=== PATIENT | female | born 1985 | race Caucasian/White ===

== ENCOUNTER 2020-02-15 17:18 | Emergency (ER) | payer MEDICAID ==
--- NOTE | 2020-02-15 19:39 | ED Physician Documentation ---
PD HPI HEENT - Stated complaint Stated Complaint: MOUTH PX - Chief complaint Chief Complaint: Heent - History obtained from History obtained from: Patient - History of Present Illness Timing - onset: How many weeks ago (1) Timing - duration: Weeks (1) Timing - details: Gradual onset, Still present Location: Tooth Improves: Medication Associated symptoms: No: Fever, Congestion, Rhinorrhea Similar symptoms before: Diagnosis (carious teeth abscess) Recently seen: Other - Additional information Additional information: 34-year-old female with carious broken teeth has been in to see her dentist last week and was placed on some amoxicillin. At that time she had a left lower molar and a right upper molar that were hurting her. The left lower molar improved and his pain the right has worsened. She has sensitivity to heat and cold and any touch. 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 - Allergies Allergies/Adverse Reactions: Allergies Allergy/AdvReac Type Severity Reaction Status Date / Time No Known Drug Allergies Allergy Verified 02/15/20 17:31 - Social History Does the pt smoke?: Yes Smoking Status: Current every day smoker Does the pt drink ETOH?: No Does the pt have substance abuse?: No - Immunizations Immunizations are current?: Yes - POLST Patient has POLST: No PD ED PE NORMAL - Vitals Vital signs reviewed: Yes (Normal) - General General: Alert and oriented X 3, Well developed/nourished, Other (Appears to be in pain) - HEENT HEENT: Atraumatic, PERRL, EOMI, Other (There are multiple carious teeth and some broken teeth the right upper molar is broken and there does appear to be exposed pulp. The left lower molar is no longer tender. There is marked tenderness to the right upper molar.) - Respiratory Respiratory: No respiratory distress - Derm Derm: Normal color, Warm and dry, No rash - Extremities Extremities: No deformity, No edema - Neuro Neuro: Alert and oriented X 3, placement director 2-12 intact, No motor deficit, No sensory deficit, Normal speech Eye Opening: Spontaneous Motor: Obeys Commands Verbal: Oriented GCS Score: 15 - Psych Psych: Normal mood, Normal affect Results - Vitals Vitals: Vital Signs - 24 hr 02/15/20 17:27 Temperature 36.2 C L Heart Rate 80 Respiratory 18 Rate Blood Pressure 109/55 L O2 Saturation 100 Oxygen O2 Source Room air PD MEDICAL DECISION MAKING - ED course Complexity details: considered differential, d/w patient ED course: 34-year-old female with a broken tooth that is giving her a lot of pain. We were able to place It over the exposed area and this immediately resolved the patient's pain. Departure - Departure Disposition: 01 Home, Self Care Clinical Impression: Pain due to dental caries Condition: Stable Instructions: ED Tooth Pain Follow-Up: Your, dentist [Other] Comments: Today it appears the broken tooth on the right upper has exposed nerve and covering it with the caivit as described will be helpful. Follow up with your dentist.
[2020-02-15 19:52] VITALS: BP 110/58
== END 2020-02-15 19:51 | disposition home or self-care (01) ==
LOC: ED 17:18
DX: K02.63 Dental caries on smooth surface penetrating into pulp (principal); F17.200 Nicotine dependence, unspecified, uncomplicated
CPT/HCPCS: 99281; 99282

== ENCOUNTER 2022-03-31 20:31 | Emergency (ER) | payer MEDICAID ==
[2022-03-31 20:42] VITALS: BP 135/72
[2022-03-31] MEDS ORDERED: ARIPiprazole 5 MG TABLET PO STA (21:49)
--- NOTE | 2022-03-31 21:55 | ED Physician Documentation ---
History of Present Illness - Stated complaint Stated Complaint: MED REFILL - Chief complaint Chief Complaint: General - History obtained from History obtained from: Patient - Additonal information Additional information: 37yF presents requesting medication refill. she normally takes abilify 15mg daily but missed her dose yesterday after running out of meds. Requested an increase in dose. she has appointment with her psychiatrist in may. denies si/hi/avh. 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 - Present Medications Home Medications: Ambulatory Orders Medication Instructions Recorded Confirmed ARIPiprazole [Abilify] 15 mg PO DAILY #60 tablet 11/17/21 Sertraline [Zoloft] 100 mg PO DAILY #60 tablet 11/17/21 ARIPiprazole [Abilify] 15 mg PO DAILY #30 tablet 02/19/22 Nitrofurantoin [Macrobid] 1 cap PO BID #10 cap 02/19/22 Phenazopyridine HCl [Pyridium] 200 mg PO TID PRN #6 tablet 02/19/22 Sertraline [Zoloft] 100 mg PO DAILY #30 tablet 02/19/22 ARIPiprazole [Abilify] 20 mg PO QDAC #30 tablet 03/31/22 - Allergies Allergies/Adverse Reactions: Allergies Allergy/AdvReac Type Severity Reaction Status Date / Time No Known Drug Allergies Allergy Verified 03/31/22 20:42 - Social History Does the pt smoke?: Yes Smoking Status: Current every day smoker Does the pt drink ETOH?: No Does the pt have substance abuse?: No - Immunizations Immunizations are current?: Yes - POLST Patient has POLST: No PD ED PE NORMAL - Vitals Vital signs reviewed: Yes - General General: Alert and oriented X 3, No acute distress, Well developed/nourished - HEENT HEENT: Atraumatic, PERRL, EOMI - Neck Neck: Supple, no meningeal sign - Derm Derm: Normal color, Warm and dry - Extremities Extremities: No deformity - Neuro Neuro: No motor deficit, No sensory deficit - Psych Psych: Normal mood, Normal affect Results - Vitals Vitals: Vital Signs - 24 hr 03/31/22 20:41 Temperature 36.0 C L Heart Rate 107 H Respiratory 17 Rate Blood Pressure 135/72 H O2 Saturation 100 Oxygen O2 Source Room air PD Medical Decision Making - ED course ED course: 37yF presents for medication refill. She is requesting higher dose of her medication and states she is unable to see a psychiatrist since they have been fully booked out till may. will give her a refill and slight increase in dose per uptodate guidelines. return precautions given. Departure - Departure Disposition: Home, Self Care Clinical Impression: Medication refill Condition: Good Instructions: Aripiprazole tablets Prescriptions: ARIPiprazole [Abilify] 20 mg PO QDAC #30 tablet Comments: You are seen in the emergency department for medication refill. Please follow- up with your psychiatrist and return to the emergency department if you have any worsening symptoms or concerns. Prescription sent electronically to [facility].
== END 2022-03-31 21:57 | disposition home or self-care (01) ==
LOC: ED 20:31
DX: Z76.0 Encounter for issue of repeat prescription (principal); F17.200 Nicotine dependence, unspecified, uncomplicated
CPT/HCPCS: 99281; 99282; A9270

== ENCOUNTER 2022-06-12 18:23 | Emergency (ER) | payer MEDICAID ==
[2022-06-12 18:55] VITALS: BP 142/83
[2022-06-12] MEDS ORDERED: ARIPiprazole 5 MG TABLET PO STA (19:23)
--- NOTE | 2022-06-12 19:24 | ED Physician Documentation ---
History of Present Illness - Stated complaint Stated Complaint: MED REFIL - Chief complaint Chief Complaint: General - History obtained from History obtained from: Patient (37-year-old woman whose boyfriend accidentally threw out her Abilify thinking it was a different prescription the other day and has been out for a few days. No SI or HI. It is unclear when she will be following up. 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 - Present Medications Home Medications: Ambulatory Orders Medication Instructions Recorded Confirmed ARIPiprazole [Abilify] 15 mg PO DAILY #60 tablet 11/17/21 Sertraline [Zoloft] 100 mg PO DAILY #60 tablet 11/17/21 ARIPiprazole [Abilify] 15 mg PO DAILY #30 tablet 02/19/22 Nitrofurantoin [Macrobid] 1 cap PO BID #10 cap 02/19/22 Phenazopyridine HCl [Pyridium] 200 mg PO TID PRN #6 tablet 02/19/22 Sertraline [Zoloft] 100 mg PO DAILY #30 tablet 02/19/22 ARIPiprazole [Abilify] 20 mg PO QDAC #30 tablet 03/31/22 ARIPiprazole [Abilify] 20 mg PO DAILY #30 tablet 06/12/22 - Allergies Allergies/Adverse Reactions: Allergies Allergy/AdvReac Type Severity Reaction Status Date / Time No Known Drug Allergies Allergy Verified 06/12/22 18:54 - Social History Does the pt smoke?: Yes Smoking Status: Current every day smoker Does the pt drink ETOH?: No Does the pt have substance abuse?: No - Immunizations Immunizations are current?: Yes - POLST Patient has POLST: No PD ED PE NORMAL - Vitals Vital signs reviewed: Yes - General General: Alert and oriented X 3, No acute distress - Neuro Neuro: Alert and oriented X 3, Normal speech - Psych Psych: Normal mood, Normal affect Results - Vitals Vitals: Vital Signs - 24 hr 06/12/22 18:52 Temperature 36.6 C Heart Rate 100 Respiratory 16 Rate Blood Pressure 142/83 H O2 Saturation 100 Oxygen O2 Source Room air Departure - Departure Disposition: 01 Home, Self Care Clinical Impression: Medication refill Condition: Good Record reviewed to determine appropriate education?: Yes Prescriptions: ARIPiprazole [Abilify] 20 mg PO DAILY #30 tablet Comments: Continue the process of obtaining follow-up for ongoing psychiatric care and refills. Return for new or worsening symptoms.
== END 2022-06-12 19:32 | disposition home or self-care (01) ==
LOC: ED 18:23
DX: Z76.0 Encounter for issue of repeat prescription (principal); F17.200 Nicotine dependence, unspecified, uncomplicated
CPT/HCPCS: 99281; 99282; A9270

== ENCOUNTER 2022-07-07 22:58 | Emergency (ER) | payer MEDICAID ==
[2022-07-07 23:05] VITALS: BP 132/58
== END 2022-07-08 01:57 | disposition left against medical advice (07) ==
LOC: ED 22:58
DX: Z53.21 Procedure and treatment not carried out due to patient leaving prior to being seen by health care provider (principal)

== ENCOUNTER 2022-08-13 16:27 | Emergency (ER) | payer MEDICAID ==
--- NOTE | 2022-08-13 16:54 | ED Physician Documentation ---
History of Present Illness - Stated complaint Stated Complaint: BILAT LEG PX - Chief complaint Chief Complaint: Wound - Additonal information Additional information: 37-year-old female presents emergency department for evaluation of bilateral lower extremity redness and induration though right greater than left. She states that she cut her leg while shaving a few days ago and has a large abrasion on the anterior kapoor. Over the last several days she has developed an area of mild erythema and induration. She also has a similar area on her left lower leg. The patient does endorse smoking methamphetamine just prior to arrival. She a lso states that sometimes her boyfriend tries to inject her with the medication. Patient requesting a prescription refill for Abilify. She denies any fevers, no red streaking. 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 - Present Medications Home Medications: Ambulatory Orders Medication Instructions Recorded Confirmed ARIPiprazole [Abilify] 20 mg PO DAILY #30 tablet 06/12/22 08/13/22 ARIPiprazole [Abilify] 20 mg PO DAILY #14 tablet 08/13/22 cephALEXin [Keflex] 500 mg PO Q6H #28 cap 08/13/22 - Allergies Allergies/Adverse Reactions: Allergies Allergy/AdvReac Type Severity Reaction Status Date / Time No Known Drug Allergies Allergy Verified 08/13/22 16:34 - Social History Does the pt smoke?: Yes Smoking Status: Current every day smoker Does the pt drink ETOH?: No Does the pt have substance abuse?: No Substance Use and Type: Meth - Immunizations Immunizations are current?: Yes - POLST Patient has POLST: No PD ED PE NORMAL - General General: Alert and oriented X 3, No acute distress, Well developed/nourished - HEENT HEENT: Atraumatic, Moist mucous membranes - Cardiac Cardiac: RRR, No murmur (No cardiac murmur noted) - Respiratory Respiratory: No respiratory distress, Clear bilaterally - Abdomen Abdomen: Normal bowel sounds, Soft, Non tender, Non distended - Derm Derm: Normal color, Warm and dry, No rash - Extremities Extremities: Other (Area of irregular erythema with mild induration at the anterior lower right leg just below large scratch/abrasion. No drainage. Tender to touch. No posterior calf tenderness bilaterally) - Neuro Neuro: Alert and oriented X 3 Results - Vitals Vitals: Vital Signs - 24 hr 08/13/22 16:31 Temperature 36.8 C Heart Rate 108 H Respiratory 16 Rate Blood Pressure 147/86 H O2 Saturation 100 Oxygen O2 Source Room air PD Medical Decision Making - ED course Complexity details: d/w patient ED course: 37-year-old female presents emergency department for concerns of infection in both her lower extremities. The right leg does have an area of cellulitis just below an area where she had scratched or cut her leg while shaving. Patient does endorse illicit drug use which I suspect to be methamphetamine. Reports she use just prior to coming into the emergency department. She does appear to be actively "tweaking." She is hyperverbal and has agitated motor movements. As such I am going to dispense her with a Narcan nasal spray for her safety. She did request a refill of the Abilify which have given her 2-week prescription for I encouraged her to follow closely with PCP. I also gave her the number and name of [facility] should she find herself willing to enter into detox Departure - Departure Disposition: 01 Home, Self Care Clinical Impression: Cellulitis of right leg, Illicit drug use Bipolar disorder Qualifiers: Active/Remission status: currently active Current bipolar episode type: manic Current episode severity: severe Psychotic features: without psychotic features Qualified Code(s): F31.13 - Bipolar disorder, current episode manic without psychotic features, severe Condition: Stable Record reviewed to determine appropriate education?: Yes Instructions: Cellulitis Dc, Naloxone nasal spray Prescriptions: ARIPiprazole [Abilify] 20 mg PO DAILY #14 tablet cephALEXin [Keflex] 500 mg PO Q6H #28 cap Comments: Lizette you do have a bacterial skin infection on your right leg that is consistent with a condition called cellulitis. This may have come from the cut or scratch on it. Please fill the prescription for the Keflex and begin taking 4 times daily for the next week. I have given you a 2-week refill of your Abilify. Please follow with your primary doctor and psychiatrist to get this refilled in the future. I do encourage you to attempt to stop using drugs if you are able. Illicit drug use whether smoking or injecting can lead to bacterial skin infections. If you feel like you would like to detox from methamphetamine you can contact the [facility] center in [place] and they can help talk you through detox and rehab when you are ready [facility] detox and stabilization facility [address] [place] [address] We are dispensing you a Narcan nasal injection kit. This is a rescue medication for anybody who may ingest a drug such as a fentanyl whether intentionally or inadvertently that can cause him to stop breathing. Please keep this with you at all times while using drugs
[2022-08-13] MEDS ORDERED: NALOXONE HCL NASAL SPRAY KIT NAS STA (16:56)
[2022-08-13 16:59] VITALS: BP 147/86
== END 2022-08-13 17:05 | disposition home or self-care (01) ==
LOC: ED 16:27
DX: L03.115 Cellulitis of right lower limb (principal); F31.13 Bipolar disorder, current episode manic without psychotic features, severe; F17.200 Nicotine dependence, unspecified, uncomplicated
CPT/HCPCS: 99282; 99284; G2215

== ENCOUNTER 2022-09-10 19:13 | Emergency (ER) | payer MEDICAID ==
[2022-09-10 19:22] VITALS: BP 132/76
--- NOTE | 2022-09-10 19:45 | ED Physician Documentation ---
History of Present Illness - Stated complaint Stated Complaint: MED REFILL - Chief complaint Chief Complaint: General - History obtained from History obtained from: Patient - Additonal information Additional information: 37-year-old woman presents with request for refill of Abilify. She has had frequent visits to the emergency department requesting refills of Abilify. The reason for this is that she does not have reliable transportation to get to and from her home to the psychiatrist office which I note is actually closer to her home than this hospital is but she can borrow a car in the evening. She has no acute complaints. No SI or HI. 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 - Present Medications Home Medications: Ambulatory Orders Medication Instructions Recorded Confirmed ARIPiprazole [Abilify] 20 mg PO DAILY #30 tablet 06/12/22 08/13/22 ARIPiprazole [Abilify] 20 mg PO DAILY #14 tablet 08/13/22 cephALEXin [Keflex] 500 mg PO Q6H #28 cap 08/13/22 ARIPiprazole [Abilify] 20 mg PO DAILY #30 tablet 09/10/22 - Allergies Allergies/Adverse Reactions: Allergies Allergy/AdvReac Type Severity Reaction Status Date / Time No Known Drug Allergies Allergy Verified 08/13/22 16:34 - Social History Does the pt smoke?: Yes Smoking Status: Current every day smoker Does the pt drink ETOH?: No Does the pt have substance abuse?: No - Immunizations Immunizations are current?: Yes - POLST Patient has POLST: No PD ED PE NORMAL - Vitals Vital signs reviewed: Yes - General General: Alert and oriented X 3, No acute distress - Neuro Neuro: Alert and oriented X 3, Normal speech - Psych Psych: Normal mood, Normal affect Results - Vitals Vitals: Vital Signs - 24 hr 09/10/22 19:20 Temperature 36.1 C L Heart Rate 89 Respiratory 18 Rate Blood Pressure 132/76 H O2 Saturation 100 Oxygen O2 Source Room air Departure - Departure Disposition: 01 Home, Self Care Clinical Impression: Bipolar disorder Qualifiers: Active/Remission status: currently active Current episode severity: unspecified Condition: Good Record reviewed to determine appropriate education?: Yes Prescriptions: ARIPiprazole [Abilify] 20 mg PO DAILY #30 tablet Comments: Please do your best to try to get to your psychiatric provider, it is not appropriate for you to continue to use the emergency department for your refills especially noting that this is your sixth visit for med refill in the last year.
== END 2022-09-10 19:48 | disposition home or self-care (01) ==
LOC: ED 19:13
DX: Z76.0 Encounter for issue of repeat prescription (principal); F31.9 Bipolar disorder, unspecified; F17.200 Nicotine dependence, unspecified, uncomplicated
CPT/HCPCS: 99281; 99283

== ENCOUNTER 2022-12-15 19:05 | Emergency (ER) | payer MEDICAID ==
[2022-12-15 19:28] VITALS: BP 123/64; O2SAT 97
[2022-12-15] MEDS ORDERED: ONDANSETRON ODT 4 MG TABLET TL STA (20:27)
--- NOTE | 2022-12-15 20:31 | ED Physician Documentation ---
History of Present Illness - Stated complaint Stated Complaint: NAUSEA/VOMIT - Chief complaint Chief Complaint: Abd Pain - Additonal information Additional information: 37-year-old female presents 37-year-old female presents emergency department for evaluation of several days nausea and vomiting. She also reports that for the last week she has been sweating a lot. She denies that she is having any abdominal pain with nausea and vomiting. No urinary symptoms. She does endorse methamphetamine use recently. Though she is endorsing nausea and vomiting for 4 days she does have a large bottle of Pepsi as well as Mountain Dew at the bedside that she is consuming without any difficulty. Patient is scheduled to see [facility] on 28 December. Currently Out of her Abilify and is requesting a refill until she is able to see [facility]. Review of Systems Constitutional: denies: Fever, Chills Throat: reports: Reviewed and negative Cardiac: reports: Reviewed and negative Respiratory: reports: Reviewed and negative GI: reports: Nausea, Vomiting. 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 - Present Medications Home Medications: Ambulatory Orders Medication Instructions Recorded Confirmed ARIPiprazole [Abilify] 20 mg PO DAILY #30 tablet 12/15/22 Ondansetron Odt [Zofran] 4 mg TL Q6H PRN #10 tablet 12/15/22 - Allergies Allergies/Adverse Reactions: Allergies Allergy/AdvReac Type Severity Reaction Status Date / Time No Known Drug Allergies Allergy Verified 12/15/22 19:20 - Social History Does the pt smoke?: Yes Smoking Status: Current every day smoker Does the pt drink ETOH?: Yes ETOH Use: Liquor Does the pt have substance abuse?: Yes Substance Use and Type: Meth - Immunizations Immunizations are current?: Yes - POLST Patient has POLST: No PD ED PE NORMAL - General General: Alert and oriented X 3, No acute distress. No: Well developed/nourished (Exaggerated hyperactive motor movements. Hyperverbal.) - HEENT HEENT: PERRL - Cardiac Cardiac: RRR - Respiratory Respiratory: No respiratory distress, Clear bilaterally - Abdomen Abdomen: Normal bowel sounds, Soft, Non tender - Back Back: No CVA TTP - Derm Derm: Normal color, Warm and dry, No rash - Extremities Extremities: No deformity - Neuro Neuro: Alert and oriented X 3, quality assurance 2-12 intact Eye Opening: Spontaneous Motor: Obeys Commands Verbal: Oriented GCS Score: 15 Results - Vitals Vitals: Vital Signs - 24 hr 12/15/22 19:14 Temperature 36.5 C Heart Rate 105 H Respiratory 17 Rate Blood Pressure 123/64 O2 Saturation 97 Oxygen O2 Source Room air PD Medical Decision Making - ED course Complexity details: d/w patient ED course: 37-year-old female who endorses current methamphetamine use presents emergency department for evaluation of 1 week diaphoresis as well as 4 days nausea and vomiting. Denies abdominal pain. On presentation to the emergency department she is hyper verbal and has hyperactive motor movements. Initially offered labs However the patient would not remain for laboratory work-up. She was also requesting a refill of her Abilify until she is able to see [facility] on 28 December. Subsequently she eloped from the emergency department before the work-up could be completed. The time of last evaluation she appeared well. Prescription for Abilify was sent to the [facility] in [place]. Departure - Departure Disposition: ED [place] Clinical Impression: Medication refill, Methamphetamine use Nausea and vomiting Qualifiers: Vomiting type: unspecified Qualified Code(s): R11.2 - Nausea with vomiting, unspecified Condition: Stable Record reviewed to determine appropriate education?: Yes Prescriptions: ARIPiprazole [Abilify] 20 mg PO DAILY #30 tablet Ondansetron Odt [Zofran] 4 mg TL Q6H PRN #10 tablet PRN Reason: Nausea / Vomiting Forms: PCP List
[2022-12-15 20:45] LABS: BASOPHILS # (AUTO) 0.1 10^3/uL (0.0-0.1); BASOPHILS % (AUTO) 0.7 %; EOSINOPHILS # (AUTO) 0.3 10^3/uL (0.0-0.7); EOSINOPHILS % (AUTO) 3.2 %; HCT - HEMATOCRIT 36.3 % (37.0-47.0); HGB - HEMOGLOBIN 12.6 g/dL (12.0-16.0); LYMPHOCYTES # (AUTO) 3.2 10^3/uL (1.5-3.5); MEAN CORPUSCULAR HEMOGLOBIN 30.3 pg (27.0-31.0); MEAN CORPUSCULAR HGB CONC 34.7 g/dL (32.0-36.0); MEAN CORPUSCULAR VOLUME 87.3 fL (81.0-99.0); MEAN PLATELET VOLUME 9.7 fL (7.9-10.8); MONOCYTES # (AUTO) 0.8 10^3/uL (0.0-1.0); MONOCYTES % (AUTO) 9.7 %; NEUTROPHILS # (AUTO) 4.1 10^3/uL (1.5-6.6); NEUTROPHILS % (AUTO) 48.3 %; PLT - PLATELET COUNT 289 10^3/uL (130-450); RED BLOOD COUNT 4.16 10^6/uL (4.20-5.40); RED CELL DISTRIBUTION WIDTH 11.9 % (12.0-15.0); WHITE BLOOD COUNT 8.5 x10^3/uL (4.8-10.8)
[2022-12-15 21:11] LABS: HCG,QUALITATIVE BLOOD NEGATIVE
[2022-12-15 21:17] LABS: ALBUMIN 4.5 g/dL (3.2-5.5); ALBUMIN/GLOBULIN RATIO 1.6 (1.0-2.2); CALCIUM 8.9 mg/dL (8.5-10.3); CREATININE 0.8 mg/dL (0.4-1.0); POTASSIUM 3.8 mmol/L (3.5-5.0); TOTAL PROTEIN 7.4 g/dL (6.7-8.2)
[2022-12-16] MEDS ORDERED: ARIPiprazole 5 MG TABLET PO SCH (09:00)
== END 2022-12-15 21:07 | disposition left against medical advice (07) ==
LOC: ED 19:05
DX: F15.90 Other stimulant use, unspecified, uncomplicated (principal); R11.2 Nausea with vomiting, unspecified; Z76.0 Encounter for issue of repeat prescription; F17.200 Nicotine dependence, unspecified, uncomplicated
CPT/HCPCS: 36415; 80053; 83690; 84703; 85025; 99282; 99283; Q0162

== ENCOUNTER 2022-12-16 17:22 | Emergency (ER) | payer MEDICAID ==
[2022-12-16 17:29] VITALS: BP 114/60; O2SAT 97
--- NOTE | 2022-12-16 17:59 | ED Physician Documentation ---
History of Present Illness - Stated complaint Stated Complaint: R HAND PX - Chief complaint Chief Complaint: Ext Problem - Additonal information Additional information: 37-year-old female presents emergency department for evaluation of right hand pain. Reports she has had pain for several days. Feels like she has cellulitis. Does not really remember any falls or trauma. Does have a history of methamphetamine use but does not inject, she smokes it only. Was seen by myself yesterday. She had reported feeling sweaty and nauseated. Also was requesting a refill of her Abilify. She did endorse active methamphetamine use. On presentation the emergency department today she is alert and well-appearing. Afebrile. No tachycardia or hypotension. She is moving the right hand normally. 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 - Present Medications Home Medications: Ambulatory Orders Medication Instructions Recorded Confirmed ARIPiprazole [Abilify] 20 mg PO DAILY #30 tablet 12/15/22 Ondansetron Odt [Zofran] 4 mg TL Q6H PRN #10 tablet 12/15/22 - Allergies Allergies/Adverse Reactions: Allergies Allergy/AdvReac Type Severity Reaction Status Date / Time No Known Drug Allergies Allergy Verified 12/16/22 17:25 - Social History Does the pt smoke?: Yes Smoking Status: Current every day smoker Does the pt drink ETOH?: Yes Does the pt have substance abuse?: Yes - Immunizations Immunizations are current?: Yes - POLST Patient has POLST: No PD ED PE EXPANDED - General General: Alert, Other (Hyperverbal as well as hyperactive motor movements.) - Extremities Extremities: Right hand (Patient is able to move the hand normally in all planes including the wrist. No swelling or deformity. No pain with passive extension. No open sores or lesions.) Results - Vitals Vitals: Vital Signs - 24 hr 12/16/22 17:25 Temperature 36.6 C Heart Rate 88 Respiratory 16 Rate Blood Pressure 114/60 O2 Saturation 97 Oxygen O2 Source Room air - Rads (name of study) right hand xr Relevant Findings:: EMP independent interpretation of test (No acute fracture or osseous lesion or dislocation.) PD Medical Decision Making - ED course Complexity details: reviewed results, d/w patient ED course: 37-year-old female who has a history of methamphetamine use presents emergency department for evaluation of several days right hand pain. Denies any trauma. Denies injecting drugs. She is concerned there could be a blood clot. On presentation the hand is warm well perfused without swelling or ecchymosis to indicate trauma. No erythema swelling to indicate cellulitis. No pain with passive finger extension thus low suspicion for tenosynovitis. An x-ray of the hand as interpreted by myself showed no acute fractures. At this time is not clear what the cause of the patient's pain is though given her history of methamphetamine use I do suspect a minor trauma that is not remembered. She was given a single dose of ibuprofen here at the emergency department advised Tylenol Motrin at home. She should follow closely for any changes in her hand such as swelling, redness, fevers or red streaking. Departure - Departure Disposition: 01 Home, Self Care Clinical Impression: Hand pain, right Condition: Stable Record reviewed to determine appropriate education?: Yes Comments: Lizette the x-ray of your hand does not show any broken bones. There is no swelling or redness that would make us think about infection. There is no pain when we gently move your fingers so I have low suspicion for infection around the tendon. This is not history or exam that is compatible with deep vein thrombosis. At this point I suspect that you had some trauma to the hand that you simply do not remember. I like you to take Tylenol 500 mg 3 times a day or alternate with ibuprofen 600 mg taken with food 3 times a day. Please continue to observe the hand for the next several days. Return to the ER if you are having worsening symptoms, fevers, red streaking or significant right hand swelling. Forms: PCP List
[2022-12-16] MEDS ORDERED: IBUPROFEN 600 MG TABLET PO STA (18:11)
--- NOTE | 2022-12-16 18:12 | XRAY Report ---
PROCEDURE: Hand 3 View RT INDICATIONS: painl ukn injury TECHNIQUE: 3 views of the hand(s) acquired. COMPARISON: None. FINDINGS: Bones: No fractures or dislocations. No suspicious bony lesions. Soft tissues: No suspicious soft tissue calcifications or masses. IMPRESSION: No visualized acute fracture or dislocation. However, occult injury cannot be excluded. Recommend magy rt interval imaging follow-up in 7-10 days as clinically indicated for additional evaluation. Reviewed by: Courtney Morley MD on 12/16/2022 6:11 PM PDT Approved by: Courtney Morley MD on 12/16/2022 6:11 PM PDT Station ID: [id number]
== END 2022-12-16 18:25 | disposition home or self-care (01) ==
LOC: ED 17:22
DX: M79.641 Pain in right hand (principal); F17.200 Nicotine dependence, unspecified, uncomplicated
CPT/HCPCS: 73130; 99283; A9270

== ENCOUNTER 2023-05-16 16:38 | Emergency (ER) | payer MEDICAID ==
[2023-05-16 16:55] VITALS: BP 122/102; O2SAT 100
--- NOTE | 2023-05-16 16:59 | ED Physician Documentation ---
History of Present Illness - Stated complaint Stated Complaint: ,LT LEG PX - Chief complaint Chief Complaint: Ext Problem - History obtained from History obtained from: Patient - Additonal information Additional information: She presents with 2 complaints: 1. She think she had a bladder infection for a month with frequency and dysuria. No flank pain or fevers. 2. For the last several days she has had swelling of the lower leg and ankle on the left that is modestly painful especially when walking and wonders if she might have cellulitis. 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 - Present Medications Home Medications: Ambulatory Orders Medication Instructions Recorded Confirmed ARIPiprazole [Abilify] 20 mg PO DAILY #30 tablet 12/15/22 05/16/23 cephALEXin [Keflex] 500 mg PO Q6H #28 cap 05/16/23 - Allergies Allergies/Adverse Reactions: Allergies Allergy/AdvReac Type Severity Reaction Status Date / Time No Known Drug Allergies Allergy Verified 05/16/23 16:41 - Social History Does the pt smoke?: Yes Smoking Status: Current every day smoker Does the pt drink ETOH?: Yes ETOH Use: Liquor Does the pt have substance abuse?: No - Immunizations Immunizations are current?: Yes - POLST Patient has POLST: No PD ED PE NORMAL - Vitals Vital signs reviewed: Yes - General General: Alert and oriented X 3, No acute distress - Abdomen Abdomen: Soft, Non tender - Back Back: No CVA TTP - Derm Derm: Normal color, Warm and dry - Extremities Extremities: Other (There is swelling and redness over the lateral left ankle extending up to mid calf. Passive range of motion of the ankle joint is relatively painless. No crepitance or pain out of proportion to exam.) - Neuro Neuro: Alert and oriented X 3, Normal speech Results - Vitals Vitals: Vital Signs - 24 hr 05/16/23 16:41 Temperature 36.2 C L Heart Rate 125 H Respiratory 18 Rate Blood Pressure 122/102 H O2 Saturation 100 Oxygen O2 Source Room air - Labs Labs: Laboratory Tests 05/16/23 17:00 Urine Color YELLOW Urine Clarity HAZY Urine pH 6.5 Ur Specific Perry 1.025 Urine Protein 30 H Urine Glucose (UA) NEGATIVE Urine Ketones TRACE Urine Occult Blood NEGATIVE Urine Nitrite NEGATIVE Urine Bilirubin SMALL H Urine Urobilinogen 4 H Ur Leukocyte Esterase SMALL H Urine RBC 0-5 Urine WBC 11-25 H Ur Squamous Epith Cells FEW Squamous Urine Bacteria Moderate H Urine Mucus Marked Strands Ur Microscopic Review INDICATED Urine Culture Comments INDICATED Urine HCG, Qual NEGATIVE - Rads (name of study) Duplex ultrasound of the left leg shows no DVT. She does have an the fluid in the area of interest Relevant Findings:: Final report received, EMP independent interpretation of test PD Medical Decision Making - ED course ED course: . She presents with cellulitis of the leg and a UTI. No evidence of DVT. Keflex should treat both. She is well-appearing and nontoxic. Departure - Departure Disposition: 01 Home, Self Care Clinical Impression: Cystitis Cellulitis Qualifiers: Site of cellulitis: extremity Site of cellulitis of extremity: lower extremity Laterality: left Qualified Code(s): L03.116 - Cellulitis of left lower limb Condition: Good Record reviewed to determine appropriate education?: Yes Instructions: Cellulitis Dc, ED UTI Cystitis Female Prescriptions: cephALEXin [Keflex] 500 mg PO Q6H #28 cap Comments: No evidence of blood clot in your left leg, but you do have a UTI and with a possible cellulitis I am treating with Keflex which is an antibiotic that should cover both. Keep the leg elevated is much as possible and you can apply a not too tight Juan wrap as a pressure dressing. We will culture your urine, the results should be done in 48-72 hours. If an antibiotic change is necessary we will call you. Return if worse in the meantime, especially if you develop increasing flank pain, fevers, or cannot keep down the medication. Follow-up with your primary care physician, next available appointment. Forms: PCP List, Activity restrictions Discharge Date/Time: 05/16/23 18:35
[2023-05-16 17:10] LABS: BILIRUBIN,URINE SMALL (NEGATIVE); GLUCOSE, URINE (UA) NEGATIVE (NEGATIVE); KETONES,URINE (UA) TRACE mg/dL (NEGATIVE); LEUKOCYTE ESTERASE, URINE SMALL (NEGATIVE); NITRITE,URINE NEGATIVE (NEGATIVE); OCCULT BLOOD,URINE NEGATIVE (NEGATIVE); PH,URINE 6.5 PH (5.0-7.5); PROTEIN,URINE 30 mg/dL (NEGATIVE); UROBILINOGEN,URINE 4 E.U./dL (NORMAL)
[2023-05-16 17:11] LABS: CLARITY,URINE HAZY (CLEAR)
[2023-05-16 17:12] LABS: HCG UR QUAL NEGATIVE
[2023-05-16 17:25] LABS: BACTERIA,URINE Moderate /HPF (None Seen); RBC,URINE 0-5 /HPF (0-5); SQUAMOUS EPITHELIAL CELL,UR FEW Squamous (<= Few)
[2023-05-16 17:26] LABS: MUCUS,URINE Marked Strands
[2023-05-16] MEDS: cephALEXin 250 MG CAPSULE PO STA (18:33)
--- NOTE | 2023-05-16 19:15 | Ultrasound Report ---
PROCEDURE: Duplex Ext Veins Left INDICATIONS: LLE swell TECHNIQUE: Real-time imaging, as well as color and pulse Doppler interrogation, were performed of th e lower extremity deep veins from the inguinal ligament to the popliteal fossa. Attempted visualizati on of the calf veins was performed. COMPARISON: None. FINDINGS: The deep veins are normally compressible, and free of intraluminal thrombus. Color and pu lse Doppler demonstrate normal phasic intraluminal flow. There is normal augmentation response to di stal compression maneuver. Incidental 2 cm subcutaneous fluid collection adjacent to the lateral ankle at the area of pain. IMPRESSION: No deep venous thrombosis of the visualized lower extremity. Small fluid collection in the soft tissues at the area pain reflect hematoma or edema Reviewed by: Paul Son MD on 05/16/2023 6:14 PM [facility] Approved by: Paul Son MD on 05/16/2023 6:14 PM [facility] Station ID: [id number]
== END 2023-05-16 18:35 | disposition home or self-care (01) ==
LOC: ED 16:38
DX: N30.90 Cystitis, unspecified without hematuria (principal); B96.20 Unspecified Escherichia coli [E. coli] as the cause of diseases classified elsewhere; L03.116 Cellulitis of left lower limb; Z79.899 Other long term (current) drug therapy; F17.200 Nicotine dependence, unspecified, uncomplicated
CPT/HCPCS: 81001; 81025; 87086; 93971; 99284; A9270; 81003; 87181

== ENCOUNTER 2023-10-28 10:01 | Emergency (ER) | payer MEDICAID ==
[2023-10-28 10:22] VITALS: BP 137/101; O2SAT 100
[2023-10-28] MEDS: TETANUS/DIPHTHERIA/PERTUSSIS 0.5 ML SYRINGE IM ONE (10:36)
--- NOTE | 2023-10-28 10:40 | ED Physician Documentation ---
History of Present Illness - Stated complaint Stated Complaint: MED REFILL, BILAT HAND PX - Chief complaint Chief Complaint: General - History obtained from History obtained from: Patient - History of Present Illness Timing: How many weeks ago (1) Pain level max: 2 Pain level now: 2 - Additonal information Additional information: 38-year-old female presents to the emergency department stating that she is out of her Abilify, is in between providers and does not have an appointment with her new provider until November 17. Requesting a refill of her Abilify 20 mg p.o. daily. She also states that she suffered a puncture wound to the right forearm about a week ago. This was from a narayan nail. She is not up-to-date on her tetanus. She noticed a small amount of redness as well as concerned about potential cellulitis. No fevers. No cough or congestion. Denies any possibility of . No drainage. Nothing makes it better or worse. 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 - Present Medications Home Medications: Ambulatory Orders Medication Instructions Recorded Confirmed ARIPiprazole [Abilify] 20 mg PO DAILY #30 tablet 12/15/22 10/28/23 ARIPiprazole [Abilify] 20 mg PO DAILY #30 tablet 10/28/23 Methadone [Methadone Hcl] 36 mg PO DAILY 10/28/23 10/28/23 cephALEXin [Keflex] 500 mg PO Q6H #28 cap 10/28/23 - Allergies Allergies/Adverse Reactions: Allergies Allergy/AdvReac Type Severity Reaction Status Date / Time No Known Drug Allergies Allergy Verified 10/28/23 10:13 - Social History Does the pt smoke?: Yes Smoking Status: Current every day smoker Does the pt drink ETOH?: Yes Does the pt have substance abuse?: No - Immunizations Immunizations are current?: Yes - POLST Patient has POLST: No PD ED PE NORMAL - Vitals Vital signs reviewed: Yes - General General: Alert and oriented X 3, No acute distress - HEENT HEENT: Moist mucous membranes - Neck Neck: Supple, no meningeal sign - Cardiac Cardiac: RRR - Respiratory Respiratory: No respiratory distress, Clear bilaterally - Derm Derm: Warm and dry - Extremities Extremities: Other (Small puncture wound to the right mid forearm. Small surrounding bruising and mild erythema. Compartments are soft. Neurovascular intact. Full range of motion of all fingers without pain. No evidence of deep space infection. No erythema spreading up or down the arm. No drainage.) - Neuro Neuro: Alert and oriented X 3 - Psych Psych: Normal mood, Normal affect Results - Vitals Vitals: Vital Signs - 24 hr 10/28/23 10:09 Temperature 36.0 C L Heart Rate 113 H Respiratory 14 Rate Blood Pressure 137/101 H O2 Saturation 100 Oxygen O2 Source Room air PD Medical Decision Making - ED course Complexity details: reviewed results, re-evaluated patient, considered differential, d/w patient ED course: Patient was given a tetanus shot for her puncture wound. She was also started on Keflex. This is for the cellulitis, it is a very mild at this stage. The patient's Abilify will be refilled. Has an appointment with her new provider in approximately 3 weeks. Patient is well-appearing, nontoxic. Afebrile. No evidence of abscess. No indication for further workup at this time. Patient counseled regarding signs and symptoms for which I believe and urgent re- evaluation would be necessary. Patient with good understanding of and agreement to plan and is comfortable going home at this time This document was made in part using voice recognition software. While efforts are made to proofread this document, sound alike and grammatical errors may occur. Departure - Departure Disposition: 01 Home, Self Care Clinical Impression: Puncture wound, Medication refill Cellulitis Qualifiers: Site of cellulitis: extremity Site of cellulitis of extremity: upper extremity Laterality: right Qualified Code(s): L03.113 - Cellulitis of right upper limb Condition: Good Instructions: ED Infec Skin Cellulitis, ED Wound Puncture General Follow-Up: your,doctor as scheduled [Other] Prescriptions: ARIPiprazole [Abilify] 20 mg PO DAILY #30 tablet cephALEXin [Keflex] 500 mg PO Q6H #28 cap Comments: [facility] in [place]. Please take all antibiotics until gone. Please follow-up with your prescriber on November 17 as scheduled regarding your Abilify. You were given a tetanus shot today.
== END 2023-10-28 10:45 | disposition home or self-care (01) ==
LOC: ED 10:01
DX: Z76.0 Encounter for issue of repeat prescription (principal); S51.831A Puncture wound without foreign body of right forearm, initial encounter; L03.113 Cellulitis of right upper limb; W45.0XXA Nail entering through skin, initial encounter; Z23 Encounter for immunization; Z79.899 Other long term (current) drug therapy; F17.200 Nicotine dependence, unspecified, uncomplicated
CPT/HCPCS: 90471; 99283